=== PATIENT | male | born 1975 | race Caucasian/White ===

== ENCOUNTER 2025-03-28 15:02 | Emergency (ER) | payer MEDICARE ==
[~2025-03-28] VITALS: Ht 180.3 cm; Wt 86.0 kg
[2025-03-28] MEDS ORDERED: OMEPRAZOLE20 MG PO (16:25)
[2025-03-28] MEDS ORDERED: XELJANZ5 MG PO (16:25)
[2025-03-28] MEDS ORDERED: FLOMAX0.4 MG PO (16:26)
[2025-03-28] MEDS ORDERED: ADDERALL 10 MG10 MG PO (16:26)
[2025-03-28] MEDS ORDERED: CELEXA10 MG PO (16:26)
[2025-03-28] MEDS ORDERED: CEPHALEXIN500 M1 PO (16:32)
[2025-03-28 16:37] VITALS: BP 136/76
== END 2025-03-28 16:38 | disposition home or self-care (01) ==
LOC: ED 15:02
DX: L73.9 Follicular disorder, unspecified (principal); Z79.899 Other long term (current) drug therapy
CPT/HCPCS: 99282